=== PATIENT | female | born 1955 | race African-American/Black ===

== ENCOUNTER 2023-03-19 15:00 | Emergency (ER) | payer MEDICAID ==
[~2023-03-19] VITALS: Ht 154.9 cm; Wt 69.0 kg
[2023-03-19 15:21] VITALS: BP 137/91; PULSE 84; RESP 16; TEMP 98.7; O2SAT 99
== END 2023-03-19 23:16 | disposition left against medical advice (07) ==
LOC: ER 15:00
DX: Z53.21 Procedure and treatment not carried out due to patient leaving prior to being seen by health care provider (principal)
CPT/HCPCS: 99281